=== PATIENT | female | born 1955 | race Caucasian/White ===

== ENCOUNTER 2023-01-03 09:00 | Outpatient (OUT) | payer MEDICARE, OTHER, SELFPAY ==
--- NOTE | 2023-01-03 10:38 | CT_ITS ---
The [address] [address] Patient Name: JONATAN HOBBS MRN: [id number] date: 1955 Sex: F Assigned Patient Location: CT Current Patient Location: CT Accession/Order Number: [id number] Exam Date: 01/03/2023 10:20 Report Date: 01/03/2023 11:23 At the request of: SUNITA MOODY Procedure: CT abdomen pelvis w con EXAM: CT abdomen pelvis w con HISTORY: Left Lower Quadrant Abdominal Pain R10.32 COMPARISON: None. TECHNIQUE: Following intravenous administration of 100 cc of Omnipaque 300, axial soft tissue windows of the abdomen and pelvis were performed with coronal and sagittal reformats. CT dose reduction technique was used including Automated Exposure Control. Findings: ABDOMEN: The liver, spleen, pancreas, adrenal glands and kidneys are unremarkable. There are stones within the gallbladder. There are colonic diverticula. Otherwise, the bowel is unremarkable without evidence of wall thickening or obstruction. The appendix is nondilated. The aorta is normal caliber. Mild atherosclerotic disease. No enlarged abdominal lymph nodes or free abdominal fluid. Small fat-containing umbilicus hernia. Pelvis: Unremarkable bladder. The uterus is surgically absent. No enlarged pelvic lymph nodes or free pelvic fluid. No aggressive sclerotic or lytic osseous lesions. Mild multilevel degenerative spondylosis. Minimal retrolisthesis of L2 and L3. CT/CT abdomen pelvis w con IMPRESSION: 1. Diverticulosis. 2. Cholelithiasis. Electronically authenticated by: LINDA MORGAN Date: 01/03/2023 11:23
== END 2023-01-03 09:01 | disposition home or self-care (01) ==
LOC: CT 09:00
PROVIDERS: PCP Internal Medicine; Visit Provider Internal Medicine
DX: R10.32 Left lower quadrant pain (principal); K57.90 Diverticulosis of intestine, part unspecified, without perforation or abscess without bleeding; K80.20 Calculus of gallbladder without cholecystitis without obstruction
CPT/HCPCS: 74177; Q9967